=== PATIENT | female | born 1940 | race Caucasian/White ===

== ENCOUNTER 2023-07-13 20:23 | Emergency (ER) | payer OTHER ==
[~2023-07-13] VITALS: Ht 165.1 cm; Wt 80.7 kg
[2023-07-13] MEDS ORDERED: MORPHINE SULFATE 2 MG/1 ML DISP.SYRIN ONE (21:20)
[2023-07-13] MEDS: MORPHINE SULFATE 2 MG/1 ML DISP.SYRIN IM ONE (21:31)
[2023-07-13] MEDS ORDERED: NAPR-1192 PO (22:55)
[2023-07-13 23:24] VITALS: BP 144/78; TEMP 98.2; O2SAT 98
== END 2023-07-13 23:24 | disposition home or self-care (01) ==
LOC: ER 20:27
DX: S59.291A Other physeal fracture of lower end of radius, right arm, initial encounter for closed fracture (principal); R51.9 Headache, unspecified; Z98.890 Other specified postprocedural states; W18.39XA Other fall on same level, initial encounter; Y93.89 Activity, other specified; Y92.89 Other specified places as the place of occurrence of the external cause; Y99.8 Other external cause status
CPT/HCPCS: 99285; 70450; 29125; 73110; 72192; 96372; J2270; A4606; A4663